=== PATIENT | female | born 1950 | race African-American/Black ===

== ENCOUNTER 2017-01-10 16:08 | Inpatient (IN) | payer BC ==
[~2017-01-10] VITALS: Ht 149.9 cm; Wt 104.3 kg
--- NOTE | 2017-01-10 16:18 | Emergency Room Report ---
History of Present Illness General Chief Complaint: Dyspnea/Respdistress Source: Patient Present Illness HPI 66-year-old female with pmhx CAD with 1 stent, hypertension p/w cough for 6 days. Pt states cough is productive, with clear non bloody sputum. Also with subjective fever chills, + sob, no chest pain. Denies runny nose or myalgias. No sick contacts or recent travel. Patient does not smoke. EMS states that patient was picked up from the urgent care, she was satting in the low 80s on room air per urgent care, came up to 94% after one breathing treatment Allergies: Coded Allergies: AMLODIPINE (Unverified Allergy, Unknown, 01/10/17) CODEINE (Verified Allergy, Unknown, 01/10/17) HYDROCHLOROTHIAZIDE (Unverified Allergy, Unknown, Rash, 01/10/17) IODINE (Unverified Allergy, Unknown, Shortness of Breath, 01/10/17) PAROXETINE (Unverified Allergy, Unknown, Shortness of Breath, 01/10/17) Patient History Past Medical History: see triage record Past Surgical History: none Pertinent Family History: none Reviewed Nursing Documentation: PMH: Agreed, PSxH: Agreed Nursing Documentation-PMH Hx Cardiac Problems: Yes - [place] 2015 stent Hx Hypertension: Yes Review of Systems All Other Systems: negative except mentioned in HPI Physical Exam Vital Signs Date Time Temp Pulse Resp B/P (MAP) Pulse Ox O2 Delivery O2 Flow Rate FiO2 01/10/17 15:59 98.8 88 20 157/110 94 Room Air Sp02 EP Interpretation: reviewed, normal General Appearance: alert, GCS 15, non-toxic, mild distress, other - +sob but speaking in complete sentences Head: normocephalic, atraumatic Eyes: bilateral eye normal inspection, bilateral eye PERRL, bilateral eye EOMI ENT: normal ENT inspection, normal pharynx, normal voice, moist mucus membranes Neck: normal inspection, full range of motion, supple Respiratory: respiratory distress, speaking full sentences, other - Course breath sounds bilaterally worse on the left, expiratory wheezing, chest symmetrical Cardiovascular #1: normal inspection, regular rate, rhythm, normal capillary refill Cardiovascular #2: 2+ radial (R), 2+ radial (L) Gastrointestinal: normal inspection, non tender, soft, non-distended, no guarding Musculoskeletal: normal inspection, back normal, normal range of motion, non- tender Neurologic: normal inspection, alert, oriented x3, responsive, motor strength/ tone normal, sensory intact, normal gait, speech normal Psychiatric: normal inspection, judgement/insight normal, memory normal Skin: normal inspection, normal color, no rash, warm/dry, well hydrated, normal turgor Medical Decision Making Diagnostic Impression: Primary Impression: Dyspnea Additional Impressions: Pneumonia Hypoxia ER Course 66 p/w cough for 6 days. DDX: Viral URI vs. pneumonia Plan: Labs, EKG CXR, antibiotics ER course: Continues to be in mild/moderate respiratory distress. duoneb given IV fluids given to patient, antibiotics administered Disposition: Patient is to be admitted to telemetry unit. Patient requires close monitoring of respiratory status and antibiotics D/w hospitalist Dr Rivas who has accepted patient for admission EKG Diagnostic Results EP Interpretation: Yes Rate: normal Rhythm: NSR ST Segments: No acute changes ASA given to patient: No Rhythm Strip EP Interpretation: Yes Rate: 90 Rhythm: NSR, no PVCs, no ectopy Chest X-ray CXR: Ordered: Yes 1 view Indication: SOB EP interpretation: Yes Interpretation: unable to fully evaluate L lung base, but possible infitlrate Impression: L sided pneumonia Electronically signed by Jake Kelly MD Laboratory Tests Test 01/10/17 16:13 01/10/17 16:30 Lactic Acid Level 1.40 mmol/L (0.66-2.22) White Blood Count 11.4 K/UL (4.8-10.8) H Red Blood Count 4.99 M/UL (4.20-5.40) Hemoglobin 14.0 G/DL (12.0-16.0) Hematocrit 44.0 % (37.0-47.0) Mean Corpuscular Volume 88 FL (80-99) Mean Corpuscular Hemoglobin 28.1 PG (27.0-31.0) Mean Corpuscular Hemoglobin Concent 31.9 G/DL (32.0-36.0) L Red Cell Distribution Width 13.6 % (11.6-14.8) Platelet Count 303 K/UL (150-450) Mean Platelet Volume 6.4 FL (6.5-10.1) L Neutrophils (%) (Auto) 59.5 % (45.0-75.0) Lymphocytes (%) (Auto) 27.0 % (20.0-45.0) Monocytes (%) (Auto) 8.0 % (1.0-10.0) Eosinophils (%) (Auto) 4.7 % (0.0-3.0) H Basophils (%) (Auto) 0.8 % (0.0-2.0) Urine Color Yellow Urine Appearance Clear Urine pH 5 (4.5-8.0) Urine Specific [place] 1.020 (1.005-1.035) Urine Protein 3+ (NEGATIVE) H Urine Glucose (UA) Negative (NEGATIVE) Urine Ketones Negative (NEGATIVE) Urine Occult Blood 1+ (NEGATIVE) H Urine Nitrite Negative (NEGATIVE) Urine Bilirubin Negative (NEGATIVE) Urine Urobilinogen Normal MG/DL (0.0-1.0) Urine Leukocyte Esterase 1+ (NEGATIVE) H Urine RBC 2-4 /HPF (0 - 2) H Urine WBC 0-2 /HPF (0 - 2) Urine Squamous Epithelial Cells Few /LPF (NONE/OCC) Urine Bacteria Few /HPF (NONE) Sodium Level 144 MMOL/L (136-145) Potassium Level 4.0 MMOL/L (3.5-5.1) Chloride Level 107 MMOL/L (98-107) Carbon Dioxide Level 24 MMOL/L (21-32) Anion Gap 13 mmol/L (5-15) Blood Urea Nitrogen 14 mg/dL (7-18) Creatinine 0.9 MG/DL (0.55-1.30) Estimate Glomerular Filtration Rate > 60 mL/min (>60) Glucose Level 95 MG/DL (74-106) Calcium Level 9.0 MG/DL (8.5-10.1) Total Bilirubin 0.4 MG/DL (0.2-1.0) Aspartate Amino Transferase (AST) 22 U/L (15-37) Alanine Aminotransferase (ALT) 26 U/L (12-78) Alkaline Phosphatase 102 U/L (46-116) Troponin I 0.025 ng/mL (0.000-0.056) Pro-B-Type Natriuretic Peptide 271 pg/mL (0-125) H Total Protein 7.6 G/DL (6.4-8.2) Albumin 3.5 G/DL (3.4-5.0) Globulin 4.1 g/dL Albumin/Globulin Ratio 0.9 (1.0-2.7) L Last Vital Signs Date Time Temp Pulse Resp B/P (MAP) Pulse Ox O2 Delivery O2 Flow Rate FiO2 01/10/17 15:59 98.8 88 20 157/110 94 Room Air Disposition: ADMITTED INPATIENT Condition: Serious Jake Kelly M.D. Jan 10, 2017 16:18
[2017-01-10 16:51] LABS: BASOPHILS % (AUTO) 0.8 % (0.0-2.0); EOSINOPHILS % (AUTO) 4.7 % (0.0-3.0); MEAN CORPUSCULAR HEMOGLOBIN 28.1 PG (27.0-31.0); MEAN CORPUSCULAR HGB CONC 31.9 G/DL (32.0-36.0); MEAN CORPUSCULAR VOLUME 88 FL (80-99); MEAN PLATELET VOLUME 6.4 FL (6.5-10.1); NEUTROPHILS % (AUTO) 59.5 % (45.0-75.0); PLATELET COUNT 303 K/UL (150-450); RED BLOOD COUNT 4.99 M/UL (4.20-5.40); RED CELL DISTRIBUTION WIDTH 13.6 % (11.6-14.8); WHITE BLOOD COUNT 11.4 K/UL (4.8-10.8)
[2017-01-10 16:52] LABS: APPEARANCE,URINE CLEAR; KETONES,URINE NEGATIVE (NEGATIVE); LEUKOCYTE ESTERASE ,URINE 1+ (NEGATIVE); NITRITE,URINE NEGATIVE (NEGATIVE); PH,URINE 5 (4.5-8.0); PROTEIN,URINE 3+ (NEGATIVE); UROBILINOGEN,URINE NORMAL MG/DL (0.0-1.0)
[2017-01-10 16:56] LABS: BACTERIA,URINE FEW /HPF; SQUAMOUS EPITHELIAL CELL,UR FEW /LPF (NONE/OCC); WBC,URINE 0-2 /HPF (0 - 2)
--- NOTE | 2017-01-10 17:21 | Diagnostic Imaging Report ---
Indication: COUGH Technique: One view of the chest Comparison: none Findings: Body habitus limits evaluation. The heart is borderline enlarged. Lungs and pleural spaces are grossly clear. Impression: Borderline cardiomegaly. No definite acute process
[2017-01-10 17:25] LABS: ANION GAP 13 mmol/L (5-15); CARBON DIOXIDE 24 MMOL/L (21-32); CHLORIDE 107 MMOL/L (98-107); CREATININE 0.9 MG/DL (0.55-1.30); GLOMERULAR FILTRATION RATE > 60 mL/min (>60); SODIUM 144 MMOL/L (136-145)
[2017-01-10 17:36] LABS: ALANINE AMINOTRANSFERASE 26 U/L (12-78); ALBUMIN/GLOBULIN RATIO 0.9 (1.0-2.7); ASPARTATE AMINO TRANSFERASE 22 U/L (15-37); TOTAL PROTEIN 7.6 G/DL (6.4-8.2)
[2017-01-10] MEDS ORDERED: Albuterol/Ipratropium 3ml neb ONE (17:36)
[2017-01-10 17:44] VITALS: BP 137/97
[2017-01-10] MEDS: Albuterol/Ipratropium 3ml neb HHN SCH ×3 (18:25→22:59)
[2017-01-10 19:33] LABS: ABG PCO2 40.7 mmHg (35.0-45.0)
[2017-01-10 19:34] LABS: ABG ALLEN TEST POSITIVE; ABG BASE EXCESS -0.8
[2017-01-10] MEDS ORDERED: LOSARTAN POTAS100 MG ORAL (19:43)
[2017-01-10 20:00] VITALS: BP 132/73
[2017-01-10] MEDS ORDERED: Albuterol/Ipratropium 3ml neb HHN PRN (22:15)
[2017-01-10] MEDS: cefTRIAXone 1 GM in D5W 55 ML IVPB SCH (23:24)
[2017-01-11 01:01] VITALS: BP 133/64
[2017-01-11] MEDS ORDERED: LIPITOR80 MG ORAL (04:04)
[2017-01-11] MEDS ORDERED: COREG6.25 MG ORAL (04:04)
[2017-01-11] MEDS ORDERED: LOSARTAN POTASS50 MG ORAL (04:04)
[2017-01-11] MEDS ORDERED: ASPIRIN81 M3 PO (04:04)
[2017-01-11] MEDS ORDERED: PLAVIX75 MG ORAL (04:04)
[2017-01-11 04:16] VITALS: BP 152/94
[2017-01-11 08:00] VITALS: BP 161/93
[2017-01-11] MEDS ORDERED: Losartan 50mg tab ORAL SCH (09:00)
[2017-01-11] MEDS: Azithromycin 250mg tab ORAL SCH (09:40)
[2017-01-11] MEDS: Carvedilol 6.25mg Tab ORAL SCH ×2 (09:40→20:35)
[2017-01-11] MEDS: Aspirin Baby 81mg ORAL SCH (09:40)
[2017-01-11 11:27] LABS: BASOPHILS % (AUTO) 0.7 % (0.0-2.0); EOSINOPHILS % (AUTO) 4.2 % (0.0-3.0); LYMPHOCYTES % (AUTO) 20.6 % (20.0-45.0); MEAN CORPUSCULAR HEMOGLOBIN 28.8 PG (27.0-31.0); MEAN CORPUSCULAR HGB CONC 32.4 G/DL (32.0-36.0); MEAN CORPUSCULAR VOLUME 89 FL (80-99); MEAN PLATELET VOLUME 6.3 FL (6.5-10.1); MONOCYTES % (AUTO) 8.4 % (1.0-10.0); PLATELET COUNT 269 K/UL (150-450); RED BLOOD COUNT 4.44 M/UL (4.20-5.40); RED CELL DISTRIBUTION WIDTH 13.9 % (11.6-14.8); WHITE BLOOD COUNT 9.2 K/UL (4.8-10.8)
[2017-01-11 12:00] VITALS: BP 141/81
[2017-01-11 12:05] LABS: ALANINE AMINOTRANSFERASE 25 U/L (12-78); ALBUMIN/GLOBULIN RATIO 0.7 (1.0-2.7); ANION GAP 5 mmol/L (5-15); ASPARTATE AMINO TRANSFERASE 18 U/L (15-37); CALCIUM 9.2 MG/DL (8.5-10.1); CARBON DIOXIDE 29 MMOL/L (21-32); CHLORIDE 106 MMOL/L (98-107); CREATININE 0.8 MG/DL (0.55-1.30); GLOMERULAR FILTRATION RATE > 60 mL/min (>60); POTASSIUM 3.7 MMOL/L (3.5-5.1); SODIUM 140 MMOL/L (136-145); TOTAL PROTEIN 7.2 G/DL (6.4-8.2)
--- NOTE | 2017-01-11 13:13 | History & Physical ---
History and Physical History & Physicial dict asthmatic bronchitis HTN CAD MAGO PALACIOS Jan 11, 2017 13:13
[2017-01-11] MEDS ORDERED: Tubing IV Secondary IV ONE (13:35)
[2017-01-11] MEDS ORDERED: NS 500ML ONE (13:35)
[2017-01-11] MEDS ORDERED: Losartan 50mg tab ORAL ONE (14:00)
[2017-01-11] MEDS: Solu-MEDROL 40mg Inj IVP SCH ×2 (15:21→22:20)
[2017-01-11 16:00] VITALS: BP 149/72
[2017-01-11 20:00] VITALS: BP 160/97
[2017-01-11] MEDS ORDERED: Atorvastatin 80mg tab ORAL SCH (21:00)
--- NOTE | 2017-01-11 21:00 | History and Physical Report ---
DATE OF ADMISSION: 01/10/2017 HISTORY OF PRESENT ILLNESS: The patient came to the emergency department last night by ambulance because of cough and shortness of breath. She visited urgent care yesterday as well for 3 days of productive cough with some small amount of clear mucus. She has wheezing and shortness of breath. She has an albuterol inhaler, but it does not seem to be helping her. She had no high fever. PAST MEDICAL HISTORY: Depression, morbid obesity, hypertension, eczema, hyperlipidemia, sleep apnea, back pain, history of myocardial infarction due to coronary disease. ALLERGIES: Intravenous contrast, amlodipine, hydrochlorothiazide, Paxil, and codeine. MEDICATIONS: Losartan, Plavix, Flonase, Coreg, and baby aspirin. SOCIAL HISTORY: She does not smoke or drink alcohol excessively. REVIEW OF SYSTEMS: Otherwise unremarkable. PHYSICAL EXAMINATION: VITAL SIGNS: The blood pressure has been elevated to 157/110 on presentation and improved since then. There is no fever. She is obese. HEENT: Head is normocephalic. NECK: No jugular venous distention. CHEST: Mild wheezing. CARDIAC: Rhythm is regular. ABDOMEN: Soft and nontender. Liver and spleen not enlarged. EXTREMITIES: No clubbing, cyanosis, or edema. IMAGING STUDIES: The chest x-ray was reviewed by me and the radiologist and appears normal except for obesity. IMPRESSION: 1. Asthmatic bronchitis. 2. Hypertension. 3. Coronary heart disease. PLAN: The patient will be treated with antibiotics, steroids, and bronchodilators. Early discharge is anticipated. Jhonathan Rivas M.D. DR: OMARI JOB#: [id number] CC:
[2017-01-11] MEDS: cefTRIAXone 1 GM in D5W 55 ML IVPB SCH (22:36)
[2017-01-12] VITALS: BP 150/93
[2017-01-12 04:00] VITALS: BP 136/75
[2017-01-12] MEDS: Solu-MEDROL 40mg Inj IVP SCH (06:11)
[2017-01-12] MEDS ORDERED: COZAAR50 MG ORAL (08:22)
[2017-01-12] MEDS ORDERED: PREDNISONE20 MG ORAL (08:22)
[2017-01-12] MEDS ORDERED: ZITHROMAX250 MG ORAL (08:22)
[2017-01-12] MEDS ORDERED: Losartan 50mg tab ORAL SCH (09:00)
[2017-01-12] MEDS: Aspirin Baby 81mg ORAL SCH (09:42)
[2017-01-12] MEDS: Carvedilol 6.25mg Tab ORAL SCH (09:42)
[2017-01-12] MEDS: Azithromycin 250mg tab ORAL SCH (09:43)
[2017-01-12] MEDS ORDERED: NS 500ML ONE (11:59)
[2017-01-12] MEDS ORDERED: Sterile Water For Irrig 2000ml IRRIG ONE (11:59)
[2017-01-12] MEDS ORDERED: Tubing IV Secondary IV ONE (11:59)
[2017-01-12 12:00] VITALS: BP 139/80
--- NOTE | 2017-01-13 16:24 | Cardiology Report ---
APPROVED REPORT EKG Measurement Heart [id number] Sinus rhythm with premature atrial complexes Otherwise normal ECG
--- NOTE | 2017-01-15 10:28 | Discharge Summary ---
Discharge Summary Hospital Course Date of Admission Jan 10, 2017 at 18:09 Date of Discharge Jan 12, 2017 at 12:00 Admitting Diagnosis dyspnea/pneumonia HPI Leni Dubon is a 66 year old female who was admitted on Jan 10, 2017 at 18 :09 for Dyspnea/Pneumonia Hospital Course dc summary #[id number] Discharge Medications New Medications: Prednisone* (Prednisone*) 20 Mg Tablet 20 MG ORAL DAILY, #5 TAB 0 Refills Azithromycin* (Zithromax*) 250 Mg Tablet 250 MG ORAL DAILY, #6 TAB Losartan Potassium* (Cozaar*) 50 Mg Tablet 100 MG ORAL DAILY, #30 TAB Continued Medications: Aspirin (Aspirin) 81 Mg Tab.chew 81 MG PO DAILY, TAB Atorvastatin (Lipitor) 80 Mg Tablet 80 MG ORAL BEDTIME, #30 TAB 0 Refills Carvedilol (Coreg) 6.25 Mg Tablet 6.25 MG ORAL EVERY 12 HOURS, TAB Clopidogrel Bisulfate* (Plavix*) 75 Mg Tablet 75 MG ORAL DAILY, TAB Discharge Condition Upon Discharge: stable Discharge Disposition Patient was discharged home Discharge Diagnoses: Discharge Instructions Discharge Instructions Special Instructions I have been assigned to complete a D/C Summary on this account. I was not involved in the patient management Swetha Root NP (Vanchtein) Jan 15, 2017 10:28
--- NOTE | 2017-01-15 20:30 | Discharge Summary 2 SIG ---
DATE OF ADMISSION: 01/10/2017 DATE OF DISCHARGE: 01/12/2017 REASON FOR ADMISSION: 66-year-old female with a history of hypertensin and ID in 2014 with placement of one stent, presented to emergency room complaining of productive cough. Sputum was described as clear, nonbloody. Reported subjective fevers, chills, shortness of breath, but no chest pain. The patient was picked up by ambulance from the urgent care when the pulse oximetry was in low 80s on the room air as per urgent care staff report. Oxygen saturation improved to 94% after breathing treatment with bronchodilators. Upon evaluation in the emergency department, pulse oximetry was stable on the room air. The patient was afebrile. Blood pressure was slightly elevated -157/110. The patient had leukocytosis,WBC - 11.4. Troponin was negative. EKG revealed normal sinus rhythm with premature atrial contraction. Stable electrolytes. Hemoglobin and hematocrit stable. Chest x-ray revealed cardiomegaly, but no acute cardiopulmonary pathology. The patient was admitted with diagnosis of asthmatic bronchitis, possible pneumonia, dyspnea, and hypoxia. HOSPITAL STAY: The patient was admitted to telemetry floor. Supplemental oxygen was provided as needed to keep saturation above 92%. Pulse oximetry was stable on room air prior to discharge. Pulmonary toilet with bronchodilators was provided. The patient was started on IV steroids, which were gradually tapered down. The patient was discharged home on additional five days of oral steroids. The patient was on empiric antibiotics. Blood culture preliminary negative. GI prophylaxis provided. Blood pressure was managed with current regimen of beta-noreen and angiotensin receptor noreen, and blood pressure stabilized. Aspirin and Plavix along with statin were continued. The patient was clinically improved and was stable for discharge home. FINAL DIAGNOSES: 1. Asthmatic bronchitis. 2. Hypertension. 3. Coronary heart disease. 4. Hypoxia, resolved. DISCHARGE MEDICATIONS: See medication reconciliation list. DISCHARGE INSTRUCTIONS: The patient was discharged home. Follow up with the primary medical doctor. Jhonathan Rivas M.D. I have been assigned to dictate discharge summary on this account and I was not involved in the patient's management. Swetha Root N.P. (Vanchtein) DR: Jovanny JOB#: [id number] CC: KENDAL
== END 2017-01-12 12:00 | disposition home or self-care (01) | DRG 202 ==
LOC: EDBD 16:08 → EMR 17:37 → 2E 18:09 → EDBEDREQ 19:07
DX: J45.909 Unspecified asthma, uncomplicated (principal); J44.0 Chronic obstructive pulmonary disease with (acute) lower respiratory infection; I10 Essential (primary) hypertension; I25.10 Atherosclerotic heart disease of native coronary artery without angina pectoris; Z95.5 Presence of coronary angioplasty implant and graft; I25.2 Old myocardial infarction; R09.02 Hypoxemia; Z88.6 Allergy status to analgesic agent; Z88.8 Allergy status to other drugs, medicaments and biological substances; E66.01 Morbid (severe) obesity due to excess calories; E78.5 Hyperlipidemia, unspecified; Z79.02 Long term (current) use of antithrombotics/antiplatelets; I49.1 Atrial premature depolarization
CPT/HCPCS: 36415; 36600; 71010; 80053; 81003; 82803; 83605; 83880; 84484; 85025; 87040; 93005; 94640; 94664; 94760; 99285; J7620

== ENCOUNTER 2017-03-16 20:37 | Emergency (ER) | payer BC ==
[~2017-03-16] VITALS: Ht 149.9 cm; Wt 93.0 kg
[~2017-03-16 20:37] MED LIST: ASPIRIN81 M3 PO; COREG6.25 MG ORAL; COZAAR50 MG ORAL; LIPITOR80 MG ORAL; LOSARTAN POTAS100 MG ORAL; LOSARTAN POTASS50 MG ORAL; PLAVIX75 MG ORAL; PREDNISONE20 MG ORAL; ZITHROMAX250 MG ORAL
[2017-03-16 20:55] VITALS: BP 180/108
[2017-03-16] MEDS ORDERED: ALBUTEROL2.5 MG/3 M INH (21:24)
[2017-03-16] MEDS ORDERED: MAXZIDE 37.5 M1 EAC1 PO (21:24)
[2017-03-16] MEDS ORDERED: Meclizine 25mg tab ORAL ONE (21:30)
--- NOTE | 2017-03-16 21:59 | Emergency Room Report ---
History of Present Illness General Chief Complaint: Dizziness Source: Patient Present Illness HPI Is a 66-year-old female with a history of high blood pressure diabetes. She presents with chief complaint of dizziness. Around 3:00 PM today, she was washing the clothes and she fell room spinning. This occurred before 5 years prior. She's the room is spinning. Episodic. Worse with her eyes open. She has nausea and vomiting. Denies any fever chills denies any trauma. No recent viral infection. No chest pain no focal deficit. No sore speech. Allergies: Coded Allergies: AMLODIPINE (Unverified Allergy, Unknown, 01/10/17) CODEINE (Verified Allergy, Unknown, 01/10/17) HYDROCHLOROTHIAZIDE (Unverified Allergy, Unknown, Rash, 01/10/17) IODINE (Unverified Allergy, Unknown, Shortness of Breath, 01/10/17) PAROXETINE (Unverified Allergy, Unknown, Shortness of Breath, 01/10/17) Patient History Past Medical History: see triage record, old chart reviewed, DM, HTN Past Surgical History: other Pertinent Family History: none Social History: Denies: smoking Now: No Immunizations: other Reviewed Nursing Documentation: PMH: Agreed, PSxH: Agreed Nursing Documentation-PMH Hx Cardiac Problems: Yes - heart attack 2016 Hx Hypertension: Yes Hx Cancer: No Hx Gastrointestinal Problems: No Hx Neurological Problems: No Review of Systems Eye: Denies: eye pain, blurred vision ENT: Denies: ear pain, nose congestion, throat swelling Respiratory: Denies: cough, shortness of breath Cardiovascular: Denies: chest pain, palpitations Gastrointestinal: Denies: abdominal pain, diarrhea, nausea, vomiting Musculoskeletal: Denies: back pain, joint pain Skin: Denies: rash Neurological: Reports: dizziness, Denies: headache, numbness Endocrine: Denies: increased thirst, increased urine Hematologic/Lymphatic: Denies: easy bruising All Other Systems: negative except mentioned in HPI Physical Exam Vital Signs Date Time Temp Pulse Resp B/P (MAP) Pulse Ox O2 Delivery O2 Flow Rate FiO2 03/16/17 20:34 97.9 78 18 180/108 98 Room Air vitals and high blood pressure Sp02 EP Interpretation: reviewed, normal General Appearance: well appearing, no apparent distress, alert Head: normocephalic, atraumatic Eyes: bilateral eye PERRL, bilateral eye EOMI ENT: hearing grossly normal, normal pharynx Neck: full range of motion, supple, no meningismus Respiratory: chest non-tender, lungs clear, normal breath sounds Cardiovascular #1: regular rate, rhythm, no murmur Gastrointestinal: normal bowel sounds, non tender, no mass, no organomegaly, no bruit, non-distended Musculoskeletal: back normal, gait/station normal, normal range of motion Psychiatric: mood/affect normal Skin: warm/dry Medical Decision Making Diagnostic Impression: Primary Impression: Vertigo ER Course Present with symptoms consistent with vertigo. No evidence of TIA or CVA. No evidence of ACS. She felt better now. We'll discharge home. Lab Results Impression labs unremarkable CT/MRI/US Diagnostic Results CT/MRI/US Diagnostic Results : Imaging Test Ordered: CT head Impression negative per radiologist Last Vital Signs Date Time Temp Pulse Resp B/P (MAP) Pulse Ox O2 Delivery O2 Flow Rate FiO2 03/16/17 20:55 97.9 78 18 180/108 98 Room Air Status: improved Disposition: HOME, SELF-CARE Condition: Stable Scripts Meclizine Hcl* (MECLIZINE*) 25 Mg Tablet 50 MG ORAL THREE TIMES A DAY, #30 TAB Prov: MARIA DEL CARMEN ANDINO M.D. 03/17/17 Patient Instructions: Vertigo Additional Instructions: Followup with your DrLarry in 2-5 days. Return if worse. MARIA DEL CARMEN ANDINO M.D. Mar 16, 2017 21:59
[2017-03-16 22:04] LABS: BASOPHILS % (AUTO) 0.5 % (0.0-2.0); EOSINOPHILS % (AUTO) 2.5 % (0.0-3.0); HEMATOCRIT 43.3 % (37.0-47.0); HEMOGLOBIN 14.1 G/DL (12.0-16.0); LYMPHOCYTES % (AUTO) 15.8 % (20.0-45.0); MEAN CORPUSCULAR VOLUME 87 FL (80-99); MONOCYTES % (AUTO) 5.3 % (1.0-10.0); NEUTROPHILS % (AUTO) 75.9 % (45.0-75.0); PLATELET COUNT 257 K/UL (150-450); RED BLOOD COUNT 4.97 M/UL (4.20-5.40); WHITE BLOOD COUNT 11.6 K/UL (4.8-10.8)
[2017-03-16 22:05] LABS: ANION GAP 6 mmol/L (5-15); BLOOD UREA NITROGEN 14 mg/dL (7-18); CALCIUM 9.2 MG/DL (8.5-10.1); CARBON DIOXIDE 28 MMOL/L (21-32); CHLORIDE 106 MMOL/L (98-107); CREATININE 0.9 MG/DL (0.55-1.30); POTASSIUM 3.7 MMOL/L (3.5-5.1); SODIUM 140 MMOL/L (136-145)
[2017-03-16] MEDS ORDERED: LORazepam Inj 2mg/ml 1ml IV ONE (22:15)
[2017-03-16 23:47] LABS: APPEARANCE,URINE CLEAR; BILIRUBIN, URINE NEGATIVE (NEGATIVE); COLOR,URINE PALE YELLOW; GLUCOSE, URINE (UA) NEGATIVE (NEGATIVE); KETONES,URINE NEGATIVE (NEGATIVE); LEUKOCYTE ESTERASE ,URINE NEGATIVE (NEGATIVE); NITRITE,URINE NEGATIVE (NEGATIVE); PH,URINE 7 (4.5-8.0); PROTEIN,URINE 2+ (NEGATIVE); UROBILINOGEN,URINE NORMAL MG/DL (0.0-1.0)
[2017-03-17] VITALS: BP 114/52
[2017-03-17] MEDS ORDERED: MECLIZINE HCL25 MG ORAL (00:20)
[2017-03-17 00:30] VITALS: BP 114/52
--- NOTE | 2017-03-17 10:10 | Diagnostic Imaging Report ---
Indications: Dizziness and vertigo Technique: Spiral acquisitions obtained through the brain. Angled axial and coronal 5 x 5 mm slices were reconstructed. Total dose length product 1397.2 mGycm. CTDI vol(s) 70.38 mGy. Dose reduction achieved using automated exposure control Comparison: None. Findings: No acute intracranial hemorrhage or edema. No mass effect nor midline shift. Normal size ventricles and extra-axial CSF spaces. There is a small lacunar infarct in the right frontal periventricular deep white matter. Old lacunar infarcts are also seen in the right basal ganglia. There is minimal periventricular deep white matter chronic ischemic change. Otherwise normal hernandez-white differentiation. Visualized orbits and sinuses are unremarkable. The mastoids are clear. Intact calvarium Impression: Mild age-related changes and old small lacunar infarcts Negative for acute intracranial bleed or mass effect This agrees with the preliminary interpretation provided by the emergency room physician The CT scanner at [facility] is accredited by the [employer] and the scans are performed using protocols designed to limit radiation exposure to as low as reasonably achievable to attain images of sufficient resolution adequate for diagnostic evaluation.
== END 2017-03-17 00:30 | disposition home or self-care (01) ==
LOC: EDBD 20:37 → EMR 20:53
DX: R42 Dizziness and giddiness (principal); I10 Essential (primary) hypertension; Z86.73 Personal history of transient ischemic attack (TIA), and cerebral infarction without residual deficits; Z88.5 Allergy status to narcotic agent; Z88.8 Allergy status to other drugs, medicaments and biological substances
CPT/HCPCS: 36415; 70450; 80048; 81001; 85025; 96374; 96375; 99284